=== PATIENT | female | born 1950 | race Caucasian/White ===

== ENCOUNTER → 2016-11-20 | Outpatient (CLI) | payer MEDICARE, OTHER ==
[~2016-11-20] MED LIST: CERTA VITE; LISI40TA; LORA10TA7; PREMPRO; TIMO0.5S4; WELL150T; [UNRECOGNIZED DRUG - OTHER]; [UNRECOGNIZED DRUG - REMARK]
--- NOTE | 2016-11-27 07:54 | CARDEX ---
CARDIOPULMONARY EXERCISE REPORT Ms. Guerrero performed a symptom limited pulmonary stress test utilizing a step-exercise protocol monitoring several cardio-pulmonary parameters including gas exchange. Her overall work capacity is moderately reduced at about 50% to 60%. She had a hypertensive response to exercise. Her blood pressure at rest was 140/70 and blood pressure at peak exercise was 210/75 and during recovery went back down to 145/70. She became dyspneic with minimal exertion over about 2 minutes and at that point had a marked increase in breathing efficiency and a drop in the end tidal C02. In light of the history of obesity hypertension and this very hypertensive response with exercise, I suspect there is an element of diastolic dysfunction contributing to the dyspnea. Her heart rate shruthi rapidly even at this level of exercise to 88% of predicted. She had no chest pain. Her ventilatory response was essentially normal. Her O2 saturations remained 96% throughout the study and she had adequate ventilatory reserve at the end of the study at 27%. Ventilation perfusion ratios were normal at rest, during exercise and recovery. IMPRESSION: In summary, she has a moderate reduction in exercise capacity with a hypertensive response to exercise but no obvious pulmonary dysfunction. This could be consistent with diastolic dysfunction and there may also be an element of de-conditioning. Clinical correlation is required. Joseph WHITEHEAD M.D. lt 11/27/16
== END ==
LOC: HRSP 12:53
PROVIDERS: ATTEND Internal Medicine
DX: R06.02 Shortness of breath (principal)
CPT/HCPCS: 94621